=== PATIENT | male | born 1930 | race Caucasian/White ===

== ENCOUNTER → 2016-09-22 | Outpatient (CLI) | payer MEDICARE, OTHER | LOC: LAB 15:31 | DX: I10 Essential (primary) hypertension (principal) ==

== ENCOUNTER → 2016-10-07 | Outpatient (CLI) | payer MEDICARE, OTHER | LOC: LAB 09:59 | DX: I10 Essential (primary) hypertension (principal) ==

== ENCOUNTER → 2016-10-12 | Outpatient (CLI) | payer MEDICARE, OTHER | LOC: RAD 09:39 | DX: M41.86 Other forms of scoliosis, lumbar region (principal); M46.96 Unspecified inflammatory spondylopathy, lumbar region; M99.73 Connective tissue and disc stenosis of intervertebral foramina of lumbar region; M51.36 Other intervertebral disc degeneration, lumbar region; M41.9 Scoliosis, unspecified; I10 Essential (primary) hypertension ==

== ENCOUNTER → 2016-10-14 | Outpatient (CLI) | payer MEDICARE, OTHER | LOC: RAD 08:13 | DX: M51.36 Other intervertebral disc degeneration, lumbar region (principal); M41.9 Scoliosis, unspecified; I10 Essential (primary) hypertension; M41.86 Other forms of scoliosis, lumbar region; I71.4 Abdominal aortic aneurysm, without rupture ==

== ENCOUNTER → 2016-10-21 | Day surgery (SDC) | payer MEDICARE, OTHER | LOC: MSO 08:00 | DX: M51.36 Other intervertebral disc degeneration, lumbar region (principal) ==

== ENCOUNTER → 2017-02-19 | Outpatient (CLI) | payer MEDICARE, OTHER | LOC: RAD 09:38 | DX: I71.4 Abdominal aortic aneurysm, without rupture (principal) ==

== ENCOUNTER → 2017-05-20 | Outpatient (CLI) | payer MEDICARE, OTHER | LOC: LAB 11:42 | DX: I10 Essential (primary) hypertension (principal); M51.36 Other intervertebral disc degeneration, lumbar region; I71.4 Abdominal aortic aneurysm, without rupture ==

== ENCOUNTER → 2017-06-23 | Outpatient (CLI) | payer MEDICARE, OTHER ==
[2017-06-23 12:38] LABS: BUN/CREATININE RATIO 16.6 (6.0-26.0); CALCIUM 9.8 mg/dL (8.4-10.2); POTASSIUM 4.4 mmol/L (3.6-5.0)
== END ==
LOC: LAB 12:14
PROVIDERS: Nurse Practitioner Family
DX: I71.4 Abdominal aortic aneurysm, without rupture (principal)

== ENCOUNTER → 2017-10-14 | Outpatient (CLI) | payer MEDICARE, OTHER | LOC: RAD 08:59 | DX: I71.4 Abdominal aortic aneurysm, without rupture (principal); I70.0 Atherosclerosis of aorta ==

== ENCOUNTER 2017-12-23 13:30 | Outpatient (RCR) | payer MEDICARE, OTHER | END 2017-12-23 14:00 | disposition home or self-care (01) | LOC: PT 13:30 | DX: R26.89 Other abnormalities of gait and mobility (principal); R29.6 Repeated falls | CPT/HCPCS: G8978-GP; G8979-GP ==

== ENCOUNTER 2018-07-04 10:55 | Emergency (ER) | payer MEDICARE, OTHER ==
[~2018-07-04] VITALS: Ht 172.7 cm; Wt 67.0 kg
[2018-07-04] MEDS ORDERED: TIMOLOL MALEATE10 M1 OS (11:04)
[2018-07-04] MEDS ORDERED: TRAMADOL 50 MG TAB PO (11:04)
[2018-07-04 11:20] LABS: HEMATOCRIT 37.8 % (42.0-52.0); HEMOGLOBIN 12.6 g/dL (13.5-18.0); MEAN CELL VOLUME 91 fl (78-100); MEAN CORPUSCULAR HEMOGLOBIN 30 pg (27-31); MEAN CORPUSCULAR HGB CONC 33 g/dL (33-37); MEAN PLATELET VOLUME 10.1 fl (7.4-10.4); PLATELET COUNT 81 K/mm3 (130-400); RED BLOOD COUNT 4.16 M/mm3 (4.20-5.60); RED CELL DISTRIBUTION WIDTH 13.6 % (11.5-14.5)
[2018-07-04 11:32] LABS: CALCIUM 8.9 mg/dL (8.4-10.2); POTASSIUM 4.1 mmol/L (3.6-5.0); TOTAL BILIRUBIN 0.6 mg/dL (0.2-1.3); TOTAL PROTEIN 6.7 g/dL (6.3-8.2)
[2018-07-04 11:41] LABS: LYMPHOCYTE 29 % (20-51); MONOCYTE 9 % (3-10); NEUTROPHILS 54 % (42-75); TROPONIN-I < 0.03 ng/mL (0.00-0.06)
[2018-07-04 12:03] LABS: URINE APPEARANCE CLEAR; URINE COLOR YELLOW
[2018-07-04 12:04] LABS: URINE BILIRUBIN NEGATIVE (NEGATIVE); URINE BLOOD TRACE (NEGATIVE); URINE GLUCOSE NEGATIVE (NEGATIVE); URINE KETONE NEGATIVE (NEGATIVE); URINE LEUKOCYTE ESTERASE NEGATIVE (NEGATIVE); URINE NITRATE NEGATIVE (NEGATIVE); URINE PROTEIN(semi-quant) NEGATIVE (NEGATIVE); URINE UROBILINOGEN NORMAL (NORMAL); URINE WBC 0-1 /hpf (0-3)
[2018-07-04] MEDS ORDERED: DESYREL50 MG PO (13:51)
[2018-07-04 14:21] VITALS: BP 139/87
== END 2018-07-04 14:00 | disposition home or self-care (01) ==
LOC: ED 10:55
PROVIDERS: Nurse Practitioner Primary Care
DX: H53.2 Diplopia (principal); R53.1 Weakness; G47.00 Insomnia, unspecified; R60.0 Localized edema; I10 Essential (primary) hypertension; H40.9 Unspecified glaucoma; I71.4 Abdominal aortic aneurysm, without rupture; Z79.899 Other long term (current) drug therapy; R01.1 Cardiac murmur, unspecified
CPT/HCPCS: J7030

== ENCOUNTER → 2018-07-04 | Outpatient (CLI) | payer MEDICARE, OTHER ==
[~2018-07-04] MED LIST: DESYREL50 MG PO; TIMOLOL MALEATE10 M1 OS; TRAMADOL 50 MG TAB PO
[2018-07-04 14:21] VITALS: BP 139/87
== END ==
LOC: RAD 16:45
DX: G31.9 Degenerative disease of nervous system, unspecified (principal); I67.82 Cerebral ischemia; H53.2 Diplopia; G45.9 Transient cerebral ischemic attack, unspecified

== ENCOUNTER → 2018-07-12 | Outpatient (CLI) | payer MEDICARE, OTHER ==
[2018-07-04 14:21] VITALS: BP 139/87
== END ==
LOC: LAB 07:12
PROVIDERS: Family Medicine
DX: I10 Essential (primary) hypertension (principal); H49.20 Sixth [abducent] nerve palsy, unspecified eye; H53.2 Diplopia; S61.219A Laceration without foreign body of unspecified finger without damage to nail, initial encounter

== ENCOUNTER → 2018-07-14 | Outpatient (CLI) | payer MEDICARE, OTHER ==
[2018-07-04 14:21] VITALS: BP 139/87
== END ==
LOC: RAD 14:56
DX: I65.23 Occlusion and stenosis of bilateral carotid arteries (principal); I10 Essential (primary) hypertension; G52.9 Cranial nerve disorder, unspecified; H53.2 Diplopia